=== PATIENT | male | born 1950 | race African-American/Black ===

== ENCOUNTER 2019-09-20 19:14 | Emergency (ER) | payer MEDICARE, BC ==
[2019-09-20 19:52] VITALS: BP 146/67
--- NOTE | 2019-09-20 20:07 | UC ---
General HPI - HPI Summary HPI Summary: Patient states he has had some dysuria for the past week or so. Had a left nephrectomy on 08/25 at [facility] when he noted to have hematuria and diagnosed with a mass. States biopsy showed RCC but does not require any chemo or radiation. May be having some hematuria, states he is peeing a lot at night. No fever. No N/V. No abdominal pain. Otherwise well. Some discomfort in left back Meds; reviewed - History of Current Complaint Chief Complaint: UCGU Stated Complaint: URINARY ISSUE Time Seen by Provider: 09/20/19 19:49 Pain Intensity: 0 - Allergy/Home Medications Allergies/Adverse Reactions: Allergies Allergy/AdvReac Type Severity Reaction Status Date / Time No Known Allergies Allergy Verified 09/20/19 19:49 Home Medications: Home Medications Cefdinir [Cefdinir 300 MG CAP] 300 mg PO BID #20 capsule 09/20/19 [Rx] Lisinopril/Hydrochlorothiazide [Lisinopril-Hctz 20-25 mg Tab] 1 each PO DAILY [History Confirmed 09/20/19] Pravastatin (NF) [Pravachol (NF)] 10 mg PO 1700 09/20/19 [History Confirmed 03/03] PMH/Surg Hx/FS Hx/Imm Hx Previously Healthy: Yes Cardiovascular History: Hypertension - Surgical History Surgical History: Yes Surgery Procedure, Year, and Place: L nephrectomy 08/2019 - Social History Alcohol Use: Rare Substance Use Type: None Smoking Status (MU): Former Smoker Review of Systems All Other Systems Reviewed And Are Negative: Yes Genitourinary: Positive: Dysuria Physical Exam Triage Information Reviewed: Yes Appearance: Well-Appearing Vital Signs: Initial Vital Signs Temp 98.6 F 09/20/19 19:50 Pulse 89 09/20/19 19:50 Resp 18 09/20/19 19:50 BP 146/67 09/20/19 19:50 Pulse Ox 98 09/20/19 19:50 Vital Signs Reviewed: Yes Eyes: Positive: Conjunctiva Clear Respiratory: Positive: Lungs clear, Normal breath sounds Cardiovascular: Positive: RRR, No Murmur Abdomen Description: Positive: Nontender, Soft, Other: - No CVA tenderness b/l Course/Dx - Course Course Of Treatment: This is a 69 yr old with recent nephrectomy who presents with dysuria U/A: Pyuria Cefdinir 300 mg x 1 given in urgent care Plan Start in the morning Cefdinir 300 mg 2 times a day for 10 days Recommend contacting your urologist at [facility] that you were seen at urgent care for a urinary tract infection and have been started on an antibiotic We will contact you if you need to change antibiotics If symptoms persist or worsen, recommend sooner follow up with urologist or go to the ER, or urgent care - Diagnoses Provider Diagnosis: Urinary tract infection Discharge ED - Sign-Out/Discharge Documenting (check all that apply): Patient Departure All imaging exams completed and their final reports reviewed: No Studies - Discharge Plan Condition: Good Disposition: HOME Prescriptions: Cefdinir [Cefdinir 300 MG CAP] 300 mg PO BID #20 capsule Patient Education Materials: Urinary Tract Infection in Older Adults (ED) Referrals: Alfredo Marrufo MD [Primary Care Provider] - Additional Instructions: Start in the morning Cefdinir 300 mg 2 times a day for 10 days Recommend contacting your urologist at [facility] that you were seen at urgent care for a urinary tract infection and have been started on an antibiotic We will contact you if you need to change antibiotics If symptoms persist or worsen, recommend sooner follow up with urologist or go to the ER, or urgent care - Billing Disposition and Condition Condition: GOOD Disposition: Home
[2019-09-20] MEDS ORDERED: Cefdinir cap* 300 MG CAP PO ONE (20:30)
--- NOTE | 2019-09-23 07:50 | UC ---
- Progress Note Progress Note: Urine culture showing gram positive cocci - the antibiotic you are currently taking may not cover this organism. Recommend switching to Nitrofurantoin and stopping Cefdinir. Medication has been faxed. WHen you follow up with your urologist let them know that we are awaiting the sensitivities to make sure that you are still on the appropriate antibiotic that your culture did grow gram positive cocci. Course/Dx - Diagnoses Provider Diagnoses: Urinary tract infection Discharge ED - Sign-Out/Discharge Documenting (check all that apply): Post-Discharge Follow Up All imaging exams completed and their final reports reviewed: No Studies - Discharge Plan Condition: Good Disposition: HOME Prescriptions: Cefdinir [Cefdinir 300 MG CAP] 300 mg PO BID #20 capsule Nitrofurantoin Macrocrystals* [Macrodantin 100 mg*] 100 mg PO BID #14 cap Patient Education Materials: Urinary Tract Infection in Older Adults (ED) Referrals: Alfredo Marrufo MD [Primary Care Provider] - Additional Instructions: If symptoms persist or worsen, recommend sooner follow up with urologist or go to the ER, or urgent care - Billing Disposition and Condition Condition: GOOD Disposition: Home
== END 2019-09-20 20:50 | disposition home or self-care (01) ==
LOC: UCEAST 19:14
DX: N39.0 Urinary tract infection, site not specified (principal); I10 Essential (primary) hypertension; Z79.899 Other long term (current) drug therapy; Z87.891 Personal history of nicotine dependence
CPT/HCPCS: 81003; 87077; 87086; 87186; 99212; A9270-GY; G0463